=== PATIENT | male | born 1960 | race African-American/Black ===

== ENCOUNTER 2022-09-05 13:18 | Emergency (ER) | payer SELFPAY ==
[2022-09-05] MEDS ORDERED: LIDOCAINE 1% W/EPI 1:100,000 50 ML MDV ONE (13:41)
--- NOTE | 2022-09-05 14:14 | RAD REPORT ---
EXAM DESCRIPTION: RAD - Forearm Left - 09/05/2022 1:58 pm CLINICAL HISTORY: penetrating injury, drill bit COMPARISON: No comparisons FINDINGS: No fracture or dislocation seen. Small olecranon spur. No radiopaque foreign body.
--- NOTE | 2022-09-05 16:43 | EDPHYS ---
Physician Documentation [facility] Name: Pepe Underwood Age: 62 yrs Sex: Male : 1960 Arrival Date: 09/05/2022 Time: 13:18 Bed Treatment Private MD: ED Physician To Brunson HPI: 09/05 15:41 This 62 yrs old Black Male presents to ER via Ambulatory with complaints of Laceration jmm To Arm. 15:41 Onset: The symptoms/episode began/occurred acutely, just prior to arrival. This is a jmm 62-year-old male with history of diabetes mellitus, hyperlipidemia the presents emerged part with a large laceration to the left forearm. Patient was injured while working with a drill bit. . Unsure on tetanus immunization. Historical: - Allergies: 14:42 No Known Allergies; ap3 - PMHx: 14:42 Diabetes mellitus; Hypercholesterolemia; ap3 - Immunization history:: Last tetanus immunization: up to date. - Social history:: Smoking status: Patient denies any tobacco usage or history of. ROS: 15:41 Constitutional: Negative for fever, chills, and weight loss, Cardiovascular: Negative jmm for chest pain, palpitations, and edema, Respiratory: Negative for shortness of breath, cough, wheezing, and pleuritic chest pain. 15:41 Skin: Positive for laceration(s). 15:41 All other systems are negative. Exam: 15:41 Constitutional: This is a well developed, well nourished patient who is awake, alert, jmm and in no acute distress. Head/Face: atraumatic. Eyes: EOMI, no conjunctival erythema appreciated ENT: Moist Mucus Membranes Neck: Trachea midline, Supple Chest/axilla: Normal chest wall appearance and motion. Cardiovascular: Regular rate and rhythm. No edema appreciated Respiratory: Normal respirations, no respiratory distress appreciated Abdomen/GI: Non distended Back: Normal ROM 15:41 Musculoskeletal/extremity: Full range of motion appreciated to the left elbow and left wrist, full tobacco flavorer strength, full radial pulse, less than 2 seconds cap refill, neuro vas intact. 15:41 Skin: 2 large lacerations noted to the left forearm approximately 4 cm each. 15:41 Neuro: Orientation: is normal, Mentation: is normal, Memory: is normal. 15:41 Psych: Behavior/mood is pleasant, cooperative. Vital Signs: 14:41 BP 154 / 75; Pulse 78; Resp 17; Temp 97.4; Pulse Ox 96% on R/A; ap3 14:44 Weight 86.18 kg; Height 5 ft. 10 in. ; ap3 14:44 Body Mass Index 27.26 (86.18 kg, 177.8 cm) ap3 Laceration: 15:41 Wound Repair of 4cm ( 1.6in ) subcutaneous laceration to right arm. Distal jmm neuro/vascular/tendon intact. Anesthesia: Local anesthetic administered with 5 mls of 1% lidocaine w/ Epi. Wound prep: Simple cleansing with betadine by me. Skin closed with 7 3-0 Prolene using simple sutures and sterile technique. Patient tolerated well. 15:41 Wound Repair of 4cm ( 1.6in ) subcutaneous laceration to palmar aspect of left forearm. jmm Distal neuro/vascular/tendon intact. Anesthesia: Local anesthetic administered with 5 mls of 1% lidocaine w/ Epi. Wound prep: Simple cleansing with betadine by me. Skin closed with 7 3-0 Prolene using simple sutures and sterile technique. Patient tolerated well. MDM: 13:27 Patient medically screened. m 16:40 Data reviewed: vital signs, nurses notes, radiologic studies, plain films. [facility] Consideration of Admission/Observation. I considered the following discharge prescriptions or medication management in the emergency department Medications were administered in the Emergency Department. See MAR. Counseling: I had a detailed discussion with the patient and/or guardian regarding: the historical points, exam findings, and any diagnostic results supporting the discharge/admit diagnosis, radiology results, the need for outpatient follow up, to return to the emergency department if symptoms worsen or persist or if there are any questions or concerns that arise at home. 09/05 13:28 Order name: Forearm Left XRAY; Complete Time: 14:16 [facility] Administered Medications: 14:00 Drug: Lidocaine-Epinephrine Infiltration -1%: (1:100,000) 20 ml {Note: administered by PA. Balbina} Volume: 20 ml; Route: Infiltration; 17:15 Not Given (Patient Refused): Tetanus-Diphtheria Toxoid IM Adult 0.5 ml IM once; Provide nj1 Vaccine Information Statement (VIS). Disposition Summary: 09/05/22 16:43 Discharge Ordered Location: Home [facility] Condition: Stable jmm Diagnosis - Laceration of the Left Arm [facility] Followup: [facility] - With: Raffaele Rosales MD - When: 7 - 10 days - Reason: Recheck today's complaints, Continuance of care, Re-evaluation by your physician Discharge Instructions: - Discharge Summary Sheet [facility] - Laceration Care, Adult [facility] Forms: - Medication Reconciliation Form [facility] - Thank You Letter [facility] - Antibiotic Education [facility] - Prescription Opioid Use [facility] - Work release form ss Prescriptions: - acetaminophen-codeine 300-15 mg Oral tablet - take 1 tablet by ORAL route every 4 to 6 hours As needed; 20 tablet; Refills: jmm 0, Product Selection Permitted - Doxycycline Monohydrate 100 mg Oral Tablet - take 1 tablet by ORAL route every 12 hours for 10 days; 20 tablet; Refills: 0, jmm Product Selection Permitted Signatures: Dispatcher [employer] EDJulio Wylie PA PA jmm Williams, Irene, RN RN iw Prokisch, Amanda, RN RN ap3 Fatemeh Brannon RN nj1
--- NOTE | 2022-09-05 16:43 | ER ---
Nurse's Notes [facility] Name: Pepe Underwood Age: 62 yrs Sex: Male : 1960 Arrival Date: 09/05/2022 Time: 13:18 Bed Treatment Private MD: Diagnosis: Laceration of the Left Arm Presentation: 09/05 13:25 Acuity: KEVIN 2 iw 13:25 Chief complaint: Patient states: got his left arm caught in a piece of equipment at iw work, deep laceration noted to left forearm/wrist area. Complicating Factors: There are no complicating factors for this patient. 13:25 Method Of Arrival: Ambulatory iw 14:44 Coronavirus screen: At this time, the client does not indicate any symptoms associated ap3 with coronavirus-19. Ebola Screen: No symptoms or risks identified at this time. Initial Sepsis Screen: Does the patient meet any 2 criteria? No. Patient's initial sepsis screen is negative. Does the patient have a suspected source of infection? Yes: Skin breakdown/wound. Risk Assessment: Do you want to hurt yourself or someone else? Patient reports no desire to harm self or others. Onset of symptoms was September 05, 2022. Triage Assessment: 14:46 General: Behavior is calm, cooperative. ap3 14:47 Injury Description: Laceration sustained to dorsal aspect of left forearm. ap3 15:00 General: Appears in no apparent distress. nj1 Historical: - Allergies: 14:42 No Known Allergies; ap3 - PMHx: 14:42 Diabetes mellitus; Hypercholesterolemia; ap3 - Immunization history:: Last tetanus immunization: up to date. - Social history:: Smoking status: Patient denies any tobacco usage or history of. Screenin:45 [facility] ED Fall Risk Assessment (Adult) History of falling in the last 3 months, ap3 including since admission No falls in past 3 months (0 pts). Abuse screen: Denies threats or abuse. Nutritional screening: No deficits noted. Tuberculosis screening: No symptoms or risk factors identified. Assessment: 14:46 Reassessment: Patient and/or family updated on plan of care and expected duration. Pain ap3 level reassessed. Patient is alert, oriented x 3, equal unlabored respirations, skin warm/dry/pink. 15:04 Reassessment: pressure dressing reapplied by TALA Kim. iw 16:35 Reassessment: swelling has decreased, light dressing was reapplied by TALA Kim. iw Vital Signs: 14:41 BP 154 / 75; Pulse 78; Resp 17; Temp 97.4; Pulse Ox 96% on R/A; ap3 14:44 Weight 86.18 kg; Height 5 ft. 10 in. ; ap3 14:44 Body Mass Index 27.26 (86.18 kg, 177.8 cm) ap3 ED Course: 13:20 Patient arrived in ED. kj1 13:21 Julio Arita PA is PHCP. jmm 13:21 To Brunson MD is Attending Physician. jmm 13:28 Arm band placed on Patient placed in an exam room, on a stretcher. ll1 13:43 Acacia May, EWELINA is Primary Nurse. iw 13:44 Triage completed. iw 13:59 Forearm Left XRAY In Process Unspecified. EDMS 14:45 Patient has correct armband on for positive identification. Bed in low position. Call ap3 light in reach. Adult w/ patient. Pulse ox on. NIBP on. Door closed. 14:45 Assist provider with laceration repair on left arm and dorsal aspect of left forearm iw that was between 7.6 to 12.5 cm using sutures. Set up tray. Performed by Julio EDGAR Dressed with 4X4s, Kerlix. 16:42 Raffaele Rosales MD is Referral Physician. [facility] Administered Medications: 14:00 Drug: Lidocaine-Epinephrine Infiltration -1%: (1:100,000) 20 ml {Note: administered by iw TALA Kim.} Volume: 20 ml; Route: Infiltration; 17:15 Not Given (Patient Refused): Tetanus-Diphtheria Toxoid IM Adult 0.5 ml IM once; Provide nj1 Vaccine Information Statement (VIS). Medication: 17:16 VIS not applicable for this client. nj1 Outcome: 16:43 Discharge ordered by . ermelinda 17:16 Discharge instructions given to patient, Instructed on discharge instructions, follow iw up and referral plans. medication usage, Demonstrated understanding of instructions, follow-up care, medications, Prescriptions given X 2. 17:16 Patient left the ED. iw 17:16 Discharged to home ambulatory. 17:16 Condition: good Signatures: Dispatcher [employer] EDMS Julio Arita PA PA jmm Lalo, Acacia, RN RN iw Ashwini Meeks RN RN ap3 Mariana Saenz kj1 Maria G Miranda, RN RN ll1 Fatemeh Brannon, RN RN nj1 Corrections: (The following items were deleted from the chart) 17:18 16:35 Reassessment: swelling has decreased, light dressing was reapplied by TALA Kim [facility] :18 17:16 [facility] 17:[facility] Condition: good [facility] :18 17:16 Discharge instructions given to patient, Instructed on discharge instructions, iw follow up and referral plans. medication usage, Demonstrated understanding of instructions, follow-up care, medications, Prescriptions given X 2, [facility] 17:16 [facility]
[2022-09-05 18:07] VITALS: BP 154/75; TEMP 97.4; O2SAT 96
== END 2022-09-05 17:16 | disposition home or self-care (01) ==
LOC: ER 13:18
PROC: 0HQEXZZ Repair Left Lower Arm Skin, External Approach (ICD-10-PCS; principal; 2022-09-05)
PROC: 0HQDXZZ Repair Right Lower Arm Skin, External Approach (ICD-10-PCS; 2022-09-05)
DX: S51.812A Laceration without foreign body of left forearm, initial encounter (principal); S41.111A Laceration without foreign body of right upper arm, initial encounter; E11.9 Type 2 diabetes mellitus without complications
CPT/HCPCS: 99284